=== PATIENT | female | born 1930 | race American Indian/Alaskan Native ===

== ENCOUNTER 2016-06-28 14:24 | Emergency (ER) | payer MEDICARE ==
[2016-06-28 15:36] LABS: Hematocrit 44.3 % (30.3-42.9); Hemoglobin 15.1 gm/dl (10.1-14.3); Mean Corpuscular HGB Conc 34 % (30-34); Mean Corpuscular Hemoglobin 33 pg (28-32); Mean Corpuscular Volume 96 fl (79-97); Platelet Count 198 K/mm3 (140-440); Red Blood Count 4.61 M/mm3 (3.65-5.03); Red Cell Distribution Width 13.4 % (13.2-15.2)
[2016-06-28 15:56] LABS: Blood Urea Nitrogen 12 mg/dL (7-17); Calcium 9.7 mg/dL (8.4-10.2); Carbon Dioxide 26 mmol/L (22-30); Chloride 101.6 mmol/L (98-107); Glucose 110 mg/dL (65-100); Potassium 3.8 mmol/L (3.6-5.0); Sodium 141 mmol/L (137-145)
[2016-06-28 15:58] LABS: Anion Gap 17 mmol/L
--- NOTE | 2016-06-28 20:30 | Emergency Department Report ---
ED General Adult HPI - General Chief complaint: Upper Respiratory Infection Stated complaint: PNEUMONIA Time Seen by Provider: 06/28/16 20:27 Source: patient Mode of arrival: Ambulatory Limitations: No Limitations - History of Present Illness Initial comments: This is a pleasant 86-year-old female who was initially seen by urgent care facility. She was noted in their facility to have COPD exacerbation and was started on DuoNeb. Chest x-ray was obtained as well patient reported that she was told she had pneumonia. According to the note from urgent care though it appears that they were concerned about her COPD exacerbation and not clearing up while she was in their office. She does report history of requiring breathing treatments in the past though she reports noncompliance with this. She states that currently she has lost her nebulizer machine. Patient denies any chest pain denies any fever. Patient denies using oxygen at home. Onset/Timin -: days(s) Improves with: rest Worsens with: movement Associated Symptoms: cough, shortness of breath. denies: chest pain, loss of appetite, nausea/vomiting Treatments Prior to Arrival: other (duoneb, 1gram rocephin) - Related Data Home Medications Medication Instructions Recorded Confirmed Last Taken Amlodipine Besylate [Norvasc] 5 mg PO QDAY 12/06/15 12/06/15 Unknown Losartan [Cozaar] 100 mg PO QDAY 12/06/15 12/06/15 Unknown Metoprolol Xl [Metoprolol 25 mg PO QDAY 12/06/15 12/06/15 Unknown SUCCINATE ER TAB] Previous Rx's Medication Instructions Recorded Last Taken Type ISOSORBIDE MONOnitrate [Imdur ER] 30 mg PO QDAY #30 tablet 06/05/15 Unknown Rx Aspirin [Aspirin BABY CHEW TAB] 81 mg PO QDAY 30 Days 12/08/15 Unknown Rx Warfarin [Coumadin] 2.5 mg PO DAILY@1700 30 Days 12/08/15 Unknown Rx ALBUTEROL Inhaler [ProAir HFA 2 puff IH QID PRN #1 inhalation 06/29/16 Unknown Rx Inhaler] ALBUTEROL NEB's [Proventil 0.083% 2.5 mg IH TID PRN #30 neb 06/29/16 Unknown Rx NEBS] Ipratropium (Nf) [Atrovent] 1 puff IH Q12HR #1 inha 06/29/16 Unknown Rx Ipratropium [Atrovent] 0.5 mg IH Q12HRT #20 ml 06/29/16 Unknown Rx Nebulizer [Aeroneb Go Nebulizer] 1 each PRN #1 each 06/29/16 Unknown Rx predniSONE [Deltasone] 2 tab PO QDAY #10 tab 06/29/16 Unknown Rx Allergies Allergy/AdvReac Type Severity Reaction Status Date / Time No Known Allergies Allergy Verified 12/06/15 18:25 ED Review of Systems ROS: Stated complaint: PNEUMONIA Other details as noted in HPI Constitutional: denies: chills, fever Eyes: denies: eye pain, eye discharge, vision change ENT: denies: ear pain, throat pain Respiratory: cough, wheezing. denies: shortness of breath Cardiovascular: denies: chest pain, palpitations Endocrine: no symptoms reported Gastrointestinal: denies: abdominal pain, nausea, diarrhea Genitourinary: denies: urgency, dysuria, discharge Musculoskeletal: denies: back pain, joint swelling, arthralgia Skin: denies: rash, lesions Neurological: denies: headache, weakness, paresthesias Psychiatric: denies: anxiety, depression Hematological/Lymphatic: denies: easy bleeding, easy bruising ED Past Medical Hx - Past Medical History Hx Hypertension: Yes Hx Heart Attack/AMI: Yes Hx Diabetes: Yes Hx Arthritis: Yes (knees) Hx COPD: Yes Hx HIV: No Additional medical history: COPD - Surgical History Hx Open Heart Surgery: Yes Additional Surgical History: CABG - Social History Smoking Status: Unknown if ever smoked Substance Use Type: None - Medications Home Medications: Home Medications Medication Instructions Recorded Confirmed Last Taken Type ISOSORBIDE MONOnitrate [Imdur ER] 30 mg PO QDAY #30 tablet 06/05/15 12/06/15 Unknown Rx Amlodipine Besylate [Norvasc] 5 mg PO QDAY 12/06/15 12/06/15 Unknown History Losartan [Cozaar] 100 mg PO QDAY 12/06/15 12/06/15 Unknown History Metoprolol Xl [Metoprolol 25 mg PO QDAY 12/06/15 12/06/15 Unknown History SUCCINATE ER TAB] Aspirin [Aspirin BABY CHEW TAB] 81 mg PO QDAY 30 Days 12/08/15 Unknown Rx Warfarin [Coumadin] 2.5 mg PO DAILY@1700 30 Days 12/08/15 Unknown Rx ALBUTEROL Inhaler [ProAir HFA 2 puff IH QID PRN #1 inhalation 06/29/16 Unknown Rx Inhaler] ALBUTEROL NEB's [Proventil 0.083% 2.5 mg IH TID PRN #30 neb 06/29/16 Unknown Rx NEBS] Ipratropium (Nf) [Atrovent] 1 puff IH Q12HR #1 inha 06/29/16 Unknown Rx Ipratropium [Atrovent] 0.5 mg IH Q12HRT #20 ml 06/29/16 Unknown Rx Nebulizer [Aeroneb Go Nebulizer] 1 each MC PRN #1 each 06/29/16 Unknown Rx predniSONE [Deltasone] 2 tab PO QDAY #10 tab 06/29/16 Unknown Rx ED Physical Exam - General Limitations: No Limitations General appearance: alert, in no apparent distress - Head Head exam: Present: atraumatic, normocephalic - Eye Eye exam: Present: normal appearance, EOMI. Absent: scleral icterus - ENT ENT exam: Present: normal exam, normal orophraynx, mucous membranes moist - Neck Neck exam: Present: normal inspection. Absent: lymphadenopathy - Respiratory Respiratory exam: Present: respiratory distress (mild), wheezes (diffusely), decreased breath sounds - Cardiovascular Cardiovascular Exam: Present: regular rate, normal rhythm. Absent: systolic murmur, diastolic murmur, rubs, gallop - GI/Abdominal GI/Abdominal exam: Present: soft, normal bowel sounds - Extremities Exam Extremities exam: Present: normal inspection - Back Exam Back exam: Present: normal inspection. Absent: CVA tenderness (L), muscle spasm - Neurological Exam Neurological exam: Present: alert, oriented X3, other (moves all extremities appropriately) - Psychiatric Psychiatric exam: Present: normal affect, normal mood - Skin Skin exam: Present: warm, dry, intact, normal color. Absent: rash ED Course Vital Signs 06/28/16 06/28/16 06/28/16 14:48 20:04 20:10 Temperature 98.2 F Pulse Rate 102 H 94 H Pulse Rate [ Bilateral Throughout] Respiratory 22 18 Rate Respiratory Rate [Bilateral Throughout] Blood Pressure 151/80 160/88 O2 Sat by Pulse 95 93 95 Oximetry 06/28/16 06/28/16 06/28/16 20:17 20:20 20:30 Temperature Pulse Rate 99 H 93 H Pulse Rate [ Bilateral Throughout] Respiratory 18 18 29 H Rate Respiratory Rate [Bilateral Throughout] Blood Pressure 152/85 159/64 O2 Sat by Pulse 97 96 96 Oximetry 06/28/16 06/28/16 06/28/16 20:40 20:50 21:00 Temperature Pulse Rate 99 H 104 H 113 H Pulse Rate [ Bilateral Throughout] Respiratory 10 L 13 18 Rate Respiratory Rate [Bilateral Throughout] Blood Pressure 159/64 92/68 92/68 O2 Sat by Pulse 95 94 94 Oximetry 06/28/16 06/28/16 06/28/16 21:10 21:20 21:30 Temperature Pulse Rate 114 H 100 H 102 H Pulse Rate [ Bilateral Throughout] Respiratory 27 H 13 17 Rate Respiratory Rate [Bilateral Throughout] Blood Pressure 178/84 165/76 134/90 O2 Sat by Pulse 93 94 95 Oximetry 06/28/16 06/28/16 06/28/16 21:40 21:50 21:52 Temperature Pulse Rate 87 89 Pulse Rate [ 68 Bilateral Throughout] Respiratory 26 H 20 Rate Respiratory 18 Rate [Bilateral Throughout] Blood Pressure 134/90 65/28 O2 Sat by Pulse 95 98 Oximetry 06/28/16 06/28/16 06/28/16 21:56 22:00 22:10 Temperature Pulse Rate 103 H 103 H Pulse Rate [ 95 H Bilateral Throughout] Respiratory 22 20 Rate Respiratory 18 Rate [Bilateral Throughout] Blood Pressure 65/32 65/32 O2 Sat by Pulse 98 97 Oximetry 06/28/16 06/28/16 06/28/16 22:20 22:30 22:40 Temperature Pulse Rate 106 H 133 H 122 H Pulse Rate [ Bilateral Throughout] Respiratory 17 16 18 Rate Respiratory Rate [Bilateral Throughout] Blood Pressure 108/90 147/84 147/84 O2 Sat by Pulse 95 95 96 Oximetry 06/28/16 06/28/16 06/28/16 22:50 23:00 23:10 Temperature Pulse Rate 133 H 111 H 122 H Pulse Rate [ Bilateral Throughout] Respiratory 26 H 17 13 Rate Respiratory Rate [Bilateral Throughout] Blood Pressure 108/90 108/90 143/69 O2 Sat by Pulse 93 95 94 Oximetry 06/28/16 06/28/16 06/28/16 23:20 23:30 23:40 Temperature Pulse Rate 111 H 106 H 100 H Pulse Rate [ Bilateral Throughout] Respiratory 20 18 15 Rate Respiratory Rate [Bilateral Throughout] Blood Pressure 133/78 153/74 153/74 O2 Sat by Pulse 93 94 95 Oximetry 06/28/16 23:50 Temperature Pulse Rate 100 H Pulse Rate [ Bilateral Throughout] Respiratory 13 Rate Respiratory Rate [Bilateral Throughout] Blood Pressure 145/80 O2 Sat by Pulse 93 Oximetry - Reevaluation(s) Reevaluation #1: 06/29/16 04:57 Patient was here for a prolonged period of time. Initially on presentation here she did sound quite tight. She was given a DuoNeb with excellent results. O2 saturation remained around 95-97% after the DuoNeb treatment. Chest x-ray for me demonstrates no sign of pneumonia. White blood cell count is normal. Afebrile here. I suspect this is a COPD exacerbation rather than a primary pneumonia. Just prior to discharge patient to demonstrate a supraventricular tachycardia consistent with her atrial fibrillation with rapid ventricular rate. I didn't feel strongly the patient was appropriate for home and to me the efforts to try to get her rate controlled prior to discharge. She was given a repeat dose of metoprolol, her normal home medication, tonight to see if we could get her in a better rate control. This was successful. She dropped from 120s to 80s on her heart rate. Patient was also noted to be anticoagulated. This is problematic with her atrial fibrillation. She does report compliance in taking her medication. He was not sure what to think with this she states that she is only on 2.5 mg daily of warfarin. This is quite a small dose but is still think it would affect the INR to some degree. Regardless we'll start the patient on 5 mg Coumadin daily for now and have recheck INR next week. I did consider cost cross covering but given her compliant nature having taken the Coumadin and inclined to just increase her dose for now. Ultimately I feel this patient is safe for home she has family member at home with her I did write for nebulized machine at home helped she is able to fill this and her respiratory status is much improved after treatments here. ED Medical Decision Making - Lab Data Result diagrams: 06/28/16 15:14 06/28/16 15:14 - EKG Data EKG shows normal: sinus rhythm (94 with pac's), axis (nml), QRS complexes (rbbb) , ST-T waves (non-specific. No acute) Rate: normal - EKG Data When compared to previous EKG there are: no significant change Interpretation: no acute changes Critical care attestation.: If time is entered above; I have spent that time in minutes in the direct care of this critically ill patient, excluding procedure time. ED Disposition Clinical Impression: COPD with exacerbation, Subtherapeutic anticoagulation Disposition: DISCHARGED TO HOME OR SELFCARE Is pt being admited?: No Does the pt Need Aspirin: No Condition: Stable Instructions: Chronic Obstructive Pulmonary Disease (ED) Additional Instructions: Use inhaler as needed. Try to get a new nebulizer. Fill prescriptions for nebulizer if you are able to. Return if worse. You need to increase your warfarin dose to 5mg daily. You need to have a repeat INR next week. Prescriptions: ALBUTEROL Inhaler [ProAir HFA Inhaler] 2 puff IH QID PRN #1 inhalation PRN Reason: Shortness Of Breath ALBUTEROL NEB's [Proventil 0.083% NEBS] 2.5 mg IH TID PRN #30 neb PRN Reason: Wheezing Ipratropium [Atrovent] 0.5 mg IH Q12HRT #20 ml Ipratropium (Nf) [Atrovent] 1 puff IH Q12HR #1 inha Nebulizer [Aeroneb Go Nebulizer] 1 each MC PRN #1 each predniSONE [Deltasone] 2 tab PO QDAY #10 tab Referrals: PRIMARY CARE, [Primary Care Provider] - 3-5 Days
[2016-06-28] MEDS ORDERED: DUONEB 0.5 MG-3 MG/3 ML SOLN IH ONE ×2 (20:39→21:53)
[2016-06-28] MEDS ORDERED: DELTASONE PO ONE (20:40)
[2016-06-28 21:24] LABS: INR 1.01 (0.87-1.13)
[2016-06-28] MEDS ORDERED: LOPRESSOR PO ONE (22:55)
[2016-06-29 00:02] VITALS: BP 145/80
--- NOTE | 2016-06-29 09:10 | XRay Report ---
CHEST 2 VIEWS: INDICATION: Cough. COMPARISON: 12/06/2015 FINDINGS: PA and lateral chest radiographs demonstrate stable cardiomediastinal silhouette, post CABG changes and demineralized bones with various degenerative changes, advanced at both shoulders. Well-expanded lungs without pleural effusions or CHF with slight improved pulmonary venous congestion radiographically versus technical. CONCLUSION: No significant acute chest process with various incidental findings, as above. Thank you for the opportunity to participate in this patient's care.
== END 2016-06-29 01:25 | disposition home or self-care (01) ==
LOC: ED 14:24
DX: J44.1 Chronic obstructive pulmonary disease with (acute) exacerbation (principal); R79.1 Abnormal coagulation profile; I10 Essential (primary) hypertension; I25.2 Old myocardial infarction; E11.9 Type 2 diabetes mellitus without complications
CPT/HCPCS: 36415; 71020; 80048; 85027; 85610; 93005; 93010; 99284; J7512

== ENCOUNTER 2017-01-13 09:42 | Emergency (ER) | payer MEDICARE ==
[2017-01-13 10:06] VITALS: BP 190/74
--- NOTE | 2017-01-13 22:31 | Emergency Department Report ---
Entered by MATTHEW CALDERON, acting as scribe for PETR EDUARDO NP. ED Upper Extremity Inj HPI - General Chief Complaint: Extremity Injury, Upper Stated Complaint: SHOULDER PAIN Time Seen by Provider: 01/13/17 11:58 Source: patient Mode of arrival: Ambulatory Limitations: No Limitations - History of Present Illness Initial Comments: This is a 86 y/o male, nontoxic, well nourished in appearance, no acute signs of distress presents with right shoulder pain x a few months. Associated symptoms include upper back pain, neck pain shooting to right arm pain but she denies numbness, chest pain, shortness of breathe, stiff neck, headache, n/v, tingling, fever, chills, nausea and vomiting. Patient denies any trauma, fall, or direct blows. Pain radiates from back to right shoulder and right arm. Patient has experienced similar symptoms in the past. Denies any injury or fall. No alleviating or aggravating factors. NKDA. PMHx of arthritis, HTN, diabetes and COPD. Patient stated sees her PCP for her blood pressure and takes Amloopine and Metoerolol. Complaint: Injury to:: shoulder -: days(s) Place: home Improves With: none Worsens With: none Associated Symptoms: denies other symptoms, other (upper back pain, neck pain, right arm pain, denies: numbness, tingling, fever, chills). denies: weakness, numbness, neck pain, suspects foreign body, nausea/vomiting, heard/felt popping sensat - Related Data Home Medications Medication Instructions Recorded Confirmed Last Taken Amlodipine Besylate [Norvasc] 5 mg PO QDAY 12/06/15 12/06/15 Unknown Losartan [Cozaar] 100 mg PO QDAY 12/06/15 12/06/15 Unknown Metoprolol Xl [Metoprolol 25 mg PO QDAY 12/06/15 12/06/15 Unknown SUCCINATE ER TAB] Previous Rx's Medication Instructions Recorded Last Taken Type ISOSORBIDE MONOnitrate [Imdur ER] 30 mg PO QDAY #30 tablet 06/05/15 Unknown Rx Aspirin [Aspirin BABY CHEW TAB] 81 mg PO QDAY 30 Days 12/08/15 Unknown Rx Warfarin [Coumadin] 2.5 mg PO DAILY@1700 30 Days 12/08/15 Unknown Rx ALBUTEROL Inhaler [ProAir HFA 2 puff IH QID PRN #1 inhalation 06/29/16 Unknown Rx Inhaler] ALBUTEROL NEB's [Proventil 0.083% 2.5 mg IH TID PRN #30 neb 06/29/16 Unknown Rx NEBS] Ipratropium (Nf) [Atrovent] 1 puff IH Q12HR #1 inha 06/29/16 Unknown Rx Ipratropium [Atrovent] 0.5 mg IH Q12HRT #20 ml 06/29/16 Unknown Rx Nebulizer [Aeroneb Go Nebulizer] 1 each MC PRN #1 each 06/29/16 Unknown Rx predniSONE [Deltasone] 2 tab PO QDAY #10 tab 06/29/16 Unknown Rx Acetaminophen [Acetaminophen TAB] 650 mg PO Q6HR PRN #30 tablet 01/13/17 Unknown Rx Allergies Allergy/AdvReac Type Severity Reaction Status Date / Time No Known Allergies Allergy Verified 12/06/15 18:25 ED Review of Systems Comment: All other systems reviewed and negative Constitutional: denies: chills, fever Eyes: denies: eye pain, eye discharge, vision change ENT: denies: ear pain, throat pain Respiratory: denies: cough, shortness of breath, wheezing Cardiovascular: denies: chest pain, palpitations Endocrine: no symptoms reported Gastrointestinal: denies: nausea, vomiting Genitourinary: denies: urgency, dysuria, discharge Musculoskeletal: back pain, other (neck pain, right shoulder and right arm pain , denies: numbness, tingling ) Skin: denies: rash, lesions Neurological: denies: headache, weakness, paresthesias Psychiatric: denies: anxiety, depression Hematological/Lymphatic: denies: easy bleeding, easy bruising ED Past Medical Hx - Past Medical History Previous Medical History?: Yes Hx Hypertension: Yes Hx Heart Attack/AMI: Yes Hx Diabetes: Yes Hx Arthritis: Yes (knees) Hx COPD: Yes Hx HIV: No Additional medical history: COPD - Surgical History Past Surgical History?: Yes Hx Open Heart Surgery: Yes Additional Surgical History: CABG - Social History Smoking Status: Never Smoker Substance Use Type: None - Medications Home Medications: Home Medications Medication Instructions Recorded Confirmed Last Taken Type ISOSORBIDE MONOnitrate [Imdur ER] 30 mg PO QDAY #30 tablet 06/05/15 12/06/15 Unknown Rx Amlodipine Besylate [Norvasc] 5 mg PO QDAY 12/06/15 12/06/15 Unknown History Losartan [Cozaar] 100 mg PO QDAY 12/06/15 12/06/15 Unknown History Metoprolol Xl [Metoprolol 25 mg PO QDAY 12/06/15 12/06/15 Unknown History SUCCINATE ER TAB] Aspirin [Aspirin BABY CHEW TAB] 81 mg PO QDAY 30 Days 12/08/15 Unknown Rx Warfarin [Coumadin] 2.5 mg PO DAILY@1700 30 Days 12/08/15 Unknown Rx ALBUTEROL Inhaler [ProAir HFA 2 puff IH QID PRN #1 inhalation 06/29/16 Unknown Rx Inhaler] ALBUTEROL NEB's [Proventil 0.083% 2.5 mg IH TID PRN #30 neb 06/29/16 Unknown Rx NEBS] Ipratropium (Nf) [Atrovent] 1 puff IH Q12HR #1 inha 06/29/16 Unknown Rx Ipratropium [Atrovent] 0.5 mg IH Q12HRT #20 ml 06/29/16 Unknown Rx Nebulizer [Aeroneb Go Nebulizer] 1 each MC PRN #1 each 06/29/16 Unknown Rx predniSONE [Deltasone] 2 tab PO QDAY #10 tab 06/29/16 Unknown Rx Acetaminophen [Acetaminophen TAB] 650 mg PO Q6HR PRN #30 tablet 01/13/17 Unknown Rx ED Physical Exam - General Limitations: No Limitations General appearance: alert, in no apparent distress - Head Head exam: Present: atraumatic, normocephalic, normal inspection - Eye Eye exam: Present: normal appearance, PERRL, EOMI. Absent: scleral icterus, conjunctival injection, nystagmus, periorbital swelling, periorbital tenderness Pupils: Present: normal accommodation - ENT ENT exam: Present: normal exam, normal orophraynx, mucous membranes moist, TM's normal bilaterally, normal external ear exam - Neck Neck exam: Present: normal inspection, full ROM. Absent: tenderness, meningismus, lymphadenopathy, thyromegaly - Respiratory Respiratory exam: Present: normal lung sounds bilaterally. Absent: respiratory distress, wheezes, rales, rhonchi, stridor, chest wall tenderness, accessory muscle use, decreased breath sounds, prolonged expiratory - Cardiovascular Cardiovascular Exam: Present: regular rate, normal rhythm, normal heart sounds. Absent: bradycardia, tachycardia, irregular rhythm, systolic murmur, diastolic murmur, rubs, gallop - GI/Abdominal GI/Abdominal exam: Present: soft, normal bowel sounds. Absent: distended, tenderness, guarding, rebound, rigid, diminished bowel sounds - Rectal Rectal exam: Present: deferred - Extremities Exam Extremities exam: Present: normal inspection, full ROM, normal capillary refill. Absent: tenderness, pedal edema, joint swelling, calf tenderness - Expanded Upper Extremity Exam Right General: Present: normal inspection Shoulder Exam: Present: normal inspection, full ROM. Absent: tenderness, swelling, abrasion, laceration, ecchymosis, deformity, crepidus, dislocation, erythema, tenderness over AC joint Upper Arm exam: Present: normal inspection, full ROM. Absent: tenderness, swelling, abrasion, laceration, ecchymosis, deformity, crepidus, dislocation, erythema Elbow exam: Present: normal inspection, full ROM. Absent: tenderness, swelling , abrasion, laceration, ecchymosis, deformity, crepidus, dislocation, erythema, effusion, pain w/ pronation/supination, tenderness over radial head Forearm Wrist exam: Present: normal inspection, full ROM. Absent: tenderness, swelling, abrasion, laceration, ecchymosis, deformity, crepidus, dislocation, erythema, tenderness over anatomical snuff box, pain with axial thumb loading Hand Wrist exam: Present: normal inspection, full ROM. Absent: tenderness, swelling, abrasion, laceration, ecchymosis, deformity, crepidus, dislocation, erythema, amputation, nail avulsion, subungual hematoma Neuro motor exam: Present: wrist extension intact, thumb opposition intact, thumb IP flexion intact, thumb adduction intact, fingers 2-5 abduction intact Neurosensory exam: Present: 2-point discrimination, radial nerve intact, ulnar nerve intact, median nerve intact Vascular: Present: normal capillary refill, radial pulse, brachial pulse, ulnar pulse - Back Exam Back exam: Present: normal inspection, full ROM, paraspinal tenderness ( cervical region). Absent: tenderness, CVA tenderness (R), CVA tenderness (L), muscle spasm, vertebral tenderness, rash noted - Neurological Exam Neurological exam: Present: alert, oriented X3, CN II-XII intact, normal gait, reflexes normal - Psychiatric Psychiatric exam: Present: normal affect, normal mood - Skin Skin exam: Present: warm, dry, intact, normal color. Absent: rash ED Course Vital Signs 01/13/17 10:04 Temperature 98.6 F Pulse Rate 66 Respiratory 16 Rate Blood Pressure 190/74 O2 Sat by Pulse 99 Oximetry - Reevaluation(s) Reevaluation #1: 01/13/17 12:42 Patient is speaking in full sentences wtih no signs of distress noted. ED Disposition Clinical Impression: Cervical radiculopathy Disposition: - TO HOME OR SELFCARE Is pt being admited?: No Does the pt Need Aspirin: No Condition: Stable Instructions: Acetaminophen (By mouth), Cervical Radiculopathy (ED) Additional Instructions: Follow-up with a primary care doctor in 3-5 days or if symptoms such as numbness , tingling, fever, chills, chest pain, shrotness of breathe or if symptoms worsen return to the ED as soon as possible. Prescriptions: Acetaminophen [Acetaminophen TAB] 650 mg PO Q6HR PRN #30 tablet PRN Reason: Pain Referrals: PRIMARY CARE,MD [Primary Care Provider] - 3-5 Days ELVI HITCHCOCK MD [Staff Physician] - 3-5 Days [facility] [Outside] - 3-5 Days [facility] [Outside] - 3-5 Days This documentation as recorded by the [facility] nettles ELIZABETH,accurately reflects the service I personally performed and the decisions made by me,PETR EDUARDO, MARCELO.
== END 2017-01-13 12:50 | disposition home or self-care (01) ==
LOC: ED 09:42
DX: M54.12 Radiculopathy, cervical region (principal); I10 Essential (primary) hypertension; I21.3 ST elevation (STEMI) myocardial infarction of unspecified site; E11.9 Type 2 diabetes mellitus without complications; M19.90 Unspecified osteoarthritis, unspecified site; J44.9 Chronic obstructive pulmonary disease, unspecified
CPT/HCPCS: 99282